=== PATIENT | female | born 1955 | race Caucasian/White ===

== ENCOUNTER → 2019-06-03 11:06 | Outpatient (BNVA) | payer MEDICARE, MEDICAID, SELFPAY | PROVIDERS: PCP Internal Medicine; Referring Provider Nurse Practitioner Family; Visit Provider Physical Therapy Assistant | DX: D64.9 Anemia, unspecified (principal); E11.22 Type 2 diabetes mellitus with diabetic chronic kidney disease; N18.9 Chronic kidney disease, unspecified; I10 Essential (primary) hypertension | CPT/HCPCS: 99213 ==

== ENCOUNTER 2019-07-28 01:34 | Outpatient (CLI) | payer MEDICARE, MEDICAID, SELFPAY ==
--- NOTE | 2019-07-28 | DI.NM_ITS ---
APPROVED REPORT Exam: Pharmacologic Patient Location: Out-Patient Room/Bed: Stress Nurse: Deidre Morejon RN BMI: 42.86 Baseline Rhythm: Sinus Rhythm Indications: Patient states she is here testing today because ???my doctor sent me???. She does repor t she has had SOB with activity for the past 3 months. Patient is a poor historian. Medical History Medical History: Sleep Apnea, Chronic Kidney Disease, Bipolar Disorder, Obesity. Cardiac Medications: Aspirin, Nitrostat, Lisinopril. Allergies: Fentanyl, Penicillin. Cardiac Risk Factors: FHX of CAD, HTN, Hyperlipidemia, Diabetes (insulin) Previous Cardiac Procedures: None Pretest Chest Pain Characteristics: None Exercise History: Sedentary Physical Disabilities: Legs Lung Sounds: Clear to auscultation Heart Sounds: Regular Stress Test Details Test: Pharmacologic stress testing performed using 0.4 mg of regadenoson per 5 mL given IV over 10 s econds. Reason for pharmacologic stress test: physical limitation. Nuclear Acquisition: Rest Tc-99m/Stress Tc-99m 1 day Rest Isotope: Tc-99m Sestamibi. Dose: 12.1 Date: 07/28/2019 Injection Time: 0915 Stress Isotope: Tc-99m Sestamibi. Dose: 38 Date: 07/28/2019 Injection Time: 1125 HR Resting HR Supine: 85 bpm Max Heart Rate (APMHR): 155 bpm Target HR (85% APMHR): 131 bpm Max HR Achieved: 106 bpm % of APMHR: 68 BP Resting BP Supine: 128/90 mmHg Max BP: 128/90 mmHg ECG Resting ECG: Sinus Tachycardia Ectopy: none Stress ECG: Sinus Rhythm ST Change: Normal Arrhythmia: None Recovery ECG: Sinus Rhythm Recovery ST Change: Normal Clinical Stress Symptoms: None Stress ECG Conclusion 1. Patient had no symptoms of ischemia during the pharmacological stress portion of this exam. 2. The ECG during stress was nondiagnostic. Protocol Used: Regadenoson Stress Test Summary STAGE HR BP Symptoms NOTES Supine 85 128/90 1 min post Lexiscan injection 105 108/90 3 min post Lexiscan injection 100 120/88 6 min post Lexiscan injection 100 124/90 9 min post Lexiscan injection 12 min post Lexiscan injection 15 min post Lexiscan injection MPI Conclusion Ejection fraction was 52%. There were no wall motion abnormalities. There was no evidence of ischemia on the imaging portion of this exam. This represents a normal SPECT stress test. Radiologist Interpretation Radiologist Interpretation by: Norris Bergman MD Interpretation Date/Time: 07/28/2019 15:24:11
[2019-07-28] MEDS: Regadenoson 0.4 MG/5 ML SYR IVP (11:48)
== END 2019-07-28 01:54 ==
PROVIDERS: PCP Internal Medicine; Visit Provider Internal Medicine Interventional Cardiology
DX: R07.9 Chest pain, unspecified (principal); R06.02 Shortness of breath; I10 Essential (primary) hypertension; E78.5 Hyperlipidemia, unspecified; G47.30 Sleep apnea, unspecified; F31.9 Bipolar disorder, unspecified; Z82.49 Family history of ischemic heart disease and other diseases of the circulatory system
CPT/HCPCS: 78452; 93016; 93018; 93017; J2785